=== PATIENT | female | born 1955 | race Caucasian/White ===

== ENCOUNTER 2024-06-17 12:33 | Emergency (ER) | payer MEDICARE, SELFPAY ==
--- NOTE | ~2024-06-17 | CT_ITS ---
EXAMINATION: CTA brain carotid DATE: 06/17/2024 13:15 INDICATION: Left hemiparesis. TECHNIQUE: Computed tomographic angiography (CTA) of the head was performed without and with 100 mL O mnipaque-350 intravenous contrast. CTA of the neck was performed with intravenous contrast. Automated exposure control and iterative reconstruction technique were employed. The dose-length product was 1 546.05 mGy-cm. Maximum intensity projection and volume rendered 3D-reconstructions were created by hien centeno technologist on a separate workstation. COMPARISON: None. FINDINGS: HEAD CTA: There is a right frontal parietal occipital subdural hematoma that is mixed hyperdense and hypodense to meza matter with maximum thickness of 6 mm. There is a left occipital subdural hematoma that is hyperdense to meza matter with maximum thickness of 4 mm. There is no acute ischemic infarct or abnormal mass lesion. The ventricles are normal in size. There is 2 mm leftward midline shift. The orbits are normal. There is a mucous retention cyst in right maxillary sinus. The mastoid air cells are normal. The vertebral arteries are codominant. There is no significant stenosis of basilar artery or the posterior cerebral arteries. The posterior communicating arteries are normal. There is no sig nificant stenosis of the intracranial internal carotid arteries or anterior or middle cerebral arteri es. Anterior communicating artery is normal. There is no aneurysm. NECK CTA: There are nodules in the thyroid measuring up to 4 mm, likely not clinically significant. T here are no pathologically enlarged lymph nodes. There is no significant stenosis of the vertebral ar teries. There is plaque in the proximal internal carotid arteries. There is 0% stenosis of the proxim al right internal carotid artery relative to normal distal artery lumen diameter (NASCET criteria). T here is 0% stenosis of the proximal left internal carotid artery relative to normal distal artery lum en diameter. There is severe cervical spondylosis. IMPRESSION: 1. Acute versus subacute right frontal parietal occipital subdural hematoma. 2. Acute left occipital subdural hematoma. 3. No aneurysm or significant intracranial arterial stenosis. 4. 0% stenosis of the proximal internal carotid arteries relative to normal distal artery lumen diame ters (NASCET criteria). Reviewed, dictated and finalized at location A. IMPRESSION: 1. Acute versus subacute right frontal parietal occipital subdural hematoma. 2. Acute left occipital subdural hematoma. 3. No aneurysm or significant intracranial arterial stenosis. 4. 0% stenosis of the proximal internal carotid arteries relative to normal dis anoop artery lumen diameters (NASCET criteria).
--- NOTE | ~2024-06-17 | XR_ITS ---
CHEST RADIOGRAPH CLINICAL HISTORY: left sided weakness . COMPARISON: None available TECHNIQUE: Single portable view of the chest. FINDINGS The cardiomediastinal silhouette is unremarkable. The lungs are clear. Visualized osseous structures and soft tissues are unremarkable. IMPRESSION: No focal infiltrate or effusion. Reviewed, dictated and finalized at location A.
[2024-06-17 12:38] VITALS: BP 134/64; PULSE 57; RESP 11; TEMP 36.6; O2SAT 99
[2024-06-17 12:39] VITALS: BP 134/64; PULSE 56; PULSE 60; RESP 12; O2SAT 99
--- NOTE | 2024-06-17 12:45 | ECG_ITS ---
Test Date: 2024-06-17 14:00:14 Measurements Intervals [place] Rate: 59 P: 42 [place]: 143 QRS: 8 QRSD: 104 T: 53 QT: 449 QTc: 446 Interpretive Statements SINUS BRADYCARDIA LOW QRS VOLTAGE IN PRECORDIAL LEADS [QRS DEFLECTION < 1.0 mV IN CHEST LEADS] OTHERWISE UNREMARKABLE ECG No previous ECG available for comparison Electronically Signed On 06-17-2024 14:49:10 CDT by Noe Porter M.D.
--- NOTE | 2024-06-17 12:45 | ED.NEUROSD ---
HPI - Neuro Symptoms/Deficit General Chief Complaint: Neuro Symptoms/Deficit Stated Complaint: left sided weakness Time Seen by Provider: 06/17/24 12:37 History of Present Illness HPI Narrative: Patient is a 69-year-old female who presents ER with acute left-sided weakness. Began around noon according to [facility]. Patient with recent traumatic subdural hemorrhage and taking care of at [facility]. She has been receiving Keppra for seizure prophylaxis. She is on Plavix. No additional anticoagulants or known trauma. Patient is unsure what her typical functional status is with her left side but thinks she is usually able to use it. She does know that she had had 3 falls prior to being diagnosed with having a subdural hemorrhage and she also had a UTI. Patient is having difficulty with raising her left leg and also has some weakness and left arm. Related Data Home Medications Medication Instructions Recorded Confirmed gabapentin 300 mg capsule 900 mg PO HS 09/13/19 06/14/24 acetaminophen 500 mg tablet 1,000 mg PO Q8H 06/14/24 06/14/24 alendronate 35 mg tablet 35 mg PO WEEKLY 06/14/24 06/14/24 amlodipine 10 mg tablet 10 mg PO DAILY 06/14/24 06/14/24 aspirin 81 mg tablet,delayed 81 mg PO EVERY OTHER DAY 06/14/24 06/14/24 release atorvastatin 80 mg tablet 80 mg PO DAILY 06/14/24 06/14/24 cholecalciferol (vitamin D3) 25 25 mcg PO DAILY 06/14/24 06/14/24 mcg (1,000 unit) tablet clopidogrel 75 mg tablet 75 mg PO DAILY 06/14/24 06/14/24 duloxetine 30 mg capsule,delayed 30 mg PO DAILY 06/14/24 06/14/24 release famotidine 20 mg tablet 20 mg PO DAILY 06/14/24 06/14/24 furosemide 20 mg tablet 20 mg PO DAILY 06/14/24 06/14/24 hydroxychloroquine 200 mg tablet 200 mg PO DAILY 06/14/24 06/14/24 levetiracetam 500 mg tablet 500 mg PO BID 06/14/24 06/14/24 levothyroxine 75 mcg tablet 75 mcg PO DAILY 06/14/24 06/14/24 polyethylene glycol 3350 17 gram 17 g PO DAILY PRN Constipation 06/14/24 06/14/24 oral powder packet sulfamethoxazole 800 1 tablet PO Q12H 06/14/24 06/14/24 mg-trimethoprim 160 mg tablet tramadol 50 mg tablet 50 mg PO HS 06/14/24 06/14/24 tramadol 50 mg tablet 100 mg PO DAILY PRN Pain (Scale 06/14/24 06/14/24 Score 7-10) tramadol 50 mg tablet 100 mg PO QAM 06/14/24 06/14/24 valsartan 320 mg tablet 320 mg PO DAILY 06/14/24 06/14/24 Allergies Allergy/AdvReac Type Severity Reaction Status Date / Time No Known Allergies Allergy Verified 06/14/24 14:01 Review of Systems Review of Systems: All systems reviewed & are unremarkable except as noted in HPI and below Constitutional: Constitutional: Reports no additional constitutional complaints ENT: Reports system reviewed and no additional complaints, except as documented Cardiovascular: Cardiovascular: Reports no additional cardiovascular complaints Respiratory: Respiratory: Reports no additional respiratory complaints Gastrointestinal: Gastrointestinal: Reports no additional gastrointestinal complaints Musculoskeletal: Musculoskeletal: Reports no additional musculoskeletal complaints Neurologic: Denies syncope, Denies headache(s), Reports focal weakness and Denies numbness PMFSH Past Medical History Medical History (Updated 06/17/24 @ 14:37 by Cricket Norton MD) Painful total knee replacement Surgical History Surgical History H/O bladder repair surgery (~1978) H/O bladder repair surgery (~1980) H/O ileostomy (~2012) H/O tubal ligation (~1973) History of cholecystectomy (~2004) History of hysterectomy (~1974) History of left knee replacement (~03/05/18) History of repair of left rotator cuff (~2004) History of repair of right rotator cuff (~2009) History of tonsillectomy (~1961) Presence of left artificial knee joint S/P bilateral foot surgery (~1979) Family History Family History Sibling Cancer Mother Heart disease
[2024-06-17 13:08] LABS: Estimated Glomerular Filt Rate > 60
[2024-06-17 13:49] LABS: Basophils Percent Auto 0.4 % (0.2-1.2); Eosinophils Absolute Auto 0.2 K/mm3 (0-0.3); Hematocrit 34.3 % (37.0-47.0); Hemoglobin 11.2 g/dL (12.0-15.0); Immature Granulocyte Absolute 0.03 K/mm3 (0.00-0.031); Immature Granulocyte Percent A 0.4 % (0-0.5); Lymphocytes Absolute Auto 0.72 K/mm3 (0.9-3.2); Lymphocytes Percent Auto 10.4 % (18.3-44.2); Mean Corpuscular HGB Conc 32.7 g/dl (32-36); Mean Corpuscular Hemoglobin 31.3 pg (26-34); Mean Corpuscular Volume 95.8 fl (80-100); Mean Platelet Volume 10.4 fl (7.4-10.4); Monocytes Absolute Auto 0.6 K/mm3 (0.1-0.6); Monocytes Percent Auto 9.3 % (2.6-8.5); Neutrophils Absolute Auto 5.3 K/mm3 (1.3-6.7); Neutrophils Percent Auto 76.5 % (45.5-73.1); Platelet Count Result 315 k/mm3 (150-375); Red Blood Count 3.58 M/mm3 (4.2-5.4); Red Cell Distribution Width 12.4 % (11.5-14.5); White Blood Count 6.9 K/mm3 (4.5-10.0)
[2024-06-17 14:04] LABS: Alanine Aminotransferase 47 U/L (6-35); Albumin Level 4.4 g/dL (3.5-5.1); Alkaline Phosphatase 166 U/L (38-126); Anion Gap 12 mmol/L (4-12); Aspartate Amino Transferase 50 U/L (14-36); Bilirubin,Total 0.6 mg/dL (0.2-1.3); Blood Urea Nitrogen 25 mg/dL (7-17); Calcium 9.9 mg/dL (8.4-10.2); Carbon Dioxide 22 mmol/L (22-30); Chloride 98 mmol/L (98-107); Estimated Glomerular Filt Rate 55; Glucose 92 mg/dL (65-110); Potassium 4.7 mmol/L (3.4-5.0); Sodium 132 mmol/L (137-145)
[2024-06-17 14:12] LABS: Prothrombin Time 13.8 Seconds (11.1-14.7)
[2024-06-17 14:13] LABS: Partial Thromboplastin Time 29.5 Seconds (22.3-36.8)
[2024-06-17 14:15] LABS: Troponin I < 0.012 ng/mL (0.000-0.034)
[2024-06-17 14:21] VITALS: BP 132/68; PULSE 62; RESP 14; O2SAT 100
[2024-06-17] MEDS: MORPHINE SULFATE (*CRX) 2 MG/ML INJ IV PUSH (15:07)
[2024-06-17 15:18] LABS: Color Urine Yellow (Yellow)
[2024-06-17 15:19] LABS: Appearance Urine Sl Cloudy (Clear)
[2024-06-17 15:20] LABS: Glucose Urine UA Negative (Negative); Protein Urine 1+ mg/dL (Negative); pH Urine 5.5 (5.0-9.0)
[2024-06-17 15:21] LABS: Bilirubin Urine Negative (Negative); Blood Urine 3+ (Negative); Ketones Urine Negative (Negative); Nitrate Urine Negative (Negative)
[2024-06-17 15:22] LABS: Add Urine Microscopic? YES; Leukocyte Esterase Ur 2+ LEU/UL (Negative); Urobilinogen Urine 0.2 mg/dL (<2.0)
[2024-06-17 15:25] LABS: Squamous Epithelial Cell Urine Moderate /hpf (Few)
[2024-06-17 15:26] LABS: Transitional Epi Cells Urine Moderate /hpf
[2024-06-17 15:27] LABS: Bacteria Urine 1+ /hpf
[2024-06-17 16:05] VITALS: BP 118/62; PULSE 59; RESP 18; TEMP 36.7; O2SAT 99
== END 2024-06-17 16:18 | disposition short-term general hospital (02) ==
PROVIDERS: Emergency Provider Emergency Medicine
DX: I62.00 Nontraumatic subdural hemorrhage, unspecified (principal); G81.94 Hemiplegia, unspecified affecting left nondominant side; R29.704 NIHSS score 4; Z96.652 Presence of left artificial knee joint; Z90.49 Acquired absence of other specified parts of digestive tract; Z90.710 Acquired absence of both cervix and uterus; Z79.02 Long term (current) use of antithrombotics/antiplatelets; Z79.82 Long term (current) use of aspirin; R00.1 Bradycardia, unspecified
CPT/HCPCS: 36415; 70496; 70498; 71045; 80053; 81001; 84484; 85025; 85610; 85730; 87086; 93005; 96374; 99291; J2270; Q9967